=== PATIENT | male | born 2005 | race Caucasian/White ===

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

== ENCOUNTER → 2024-03-10 | Outpatient (CLI) | payer OTHER ==
--- NOTE | 2024-03-10 08:14 | US ---
EXAMINATION TYPE: US gallbladder DATE OF EXAM: 03/10/2024 COMPARISON: NONE CLINICAL INDICATION: Male, 18 years old with history of R11.2 Nausea with vomiting; Pain nausea and v omiting. TECHNIQUE: Grayscale and color Doppler imaging of the right upper quadrant was performed. FINDINGS: EXAM MEASUREMENTS: Liver Length: 14.1 cm Gallbladder Wall: .2 cm CBD: .4 cm Right Kidney: 10.4 x 4.9 x 4.0 cm TOOL LIAISON NOTES: Pancreas: Obscured by bowel gas Liver: Increased attenuation Gallbladder: No stones seen Evidence for sonographic Del Valle's sign: No CBD: wnl Right Kidney: No hydronephrosis or masses seen IMPRESSION: 1. Unremarkable right upper quadrant ultrasound [facility], , 03/10/2024 8:12 AM
== END | disposition home or self-care (01) ==
LOC: RADUSWWP 07:18
PROVIDERS: ATTEND Family Medicine
DX: R11.2 Nausea with vomiting, unspecified (principal)
CPT/HCPCS: 76705

== ENCOUNTER → 2024-03-24 | Outpatient (CLI) | payer OTHER ==
--- NOTE | 2024-03-24 17:28 | NM ---
EXAMINATION TYPE: NM hepatobiliary w EF DATE OF EXAM: 03/24/2024 COMPARISON: NONE CLINICAL INDICATION: Male, 18 years old with history of R10.11 RIGHT UPPER QUADRANT PAIN; TECHNIQUE: After the intravenous administration of 5.24 mCi Tc 99m Mebrofenin hepatobiliary scintigra phy is performed. Immediate images post injection. FINDINGS: There is satisfactory initial accumulation of tracer by the liver. The gallbladder is visualized wit hin less than 1 minute. The small bowel activity is noted within 26 minutes. At one hour 8 ounces of oral ensure plus is given to mimic CCK and gallbladder ejection fraction is calculated at 74 %, in t he normal range. Therefore there is no scintigraphic evidence of cystic or common bile duct obstruct ion to suggest acute cholecystitis or gallbladder dyskinesia. IMPRESSION: Exam is within normal limits. [facility], , 03/24/2024 5:26 PM
== END | disposition home or self-care (01) ==
LOC: RADNMMAIN 13:09
PROVIDERS: ATTEND Family Medicine
DX: R10.11 Right upper quadrant pain (principal)
CPT/HCPCS: 78226; A9537

== ENCOUNTER → 2024-04-29 | Outpatient (CLI) | payer OTHER ==
[2024-04-29 21:11] LABS: Gliadin AB IgA, Deaminated Negative (Negative); Gliadin AB IgA, Unit 1.7 U/mL; Gliadin AB IgG, Deaminated Negative (Negative); Gliadin AB IgG, Unit <0.4 U/mL
== END | disposition home or self-care (01) ==
LOC: LABWHC1 13:51
PROVIDERS: ATTEND Nurse Practitioner Family
DX: R10.9 Unspecified abdominal pain (principal)
CPT/HCPCS: 36415; 83516